=== PATIENT | male | born 1975 | race Caucasian/White ===

== ENCOUNTER 2017-03-12 17:57 | Emergency (ER) | payer OTHER | END 2017-03-12 22:39 | disposition home or self-care (01) | LOC: ER 17:57 | DX: B02.9 Zoster without complications (principal); F17.210 Nicotine dependence, cigarettes, uncomplicated; Z88.5 Allergy status to narcotic agent; Z79.891 Long term (current) use of opiate analgesic | CPT/HCPCS: 96372; 99282-25 ==